=== PATIENT | female | born 1930 | race Caucasian/White ===

== ENCOUNTER 2016-02-10 16:40 | Inpatient (IN) | payer MEDICARE, OTHER ==
[~2016-02-10] VITALS: Ht 168.9 cm; Wt 56.0 kg
[~2016-02-10 16:40] MED LIST: ASPI-973 PO; ATOR40TA69 PO; FURO-128 PO; HYDR200T5 PO; LEVO88TA3 PO; METO50TA3 PO; POTA10CA42 PO
[2016-02-10 16:47] VITALS: BP 100/64; PULSE 87; RESP 20; O2SAT 100
--- NOTE | 2016-02-10 17:05 | ED.REPORT ---
HPI-Dyspnea / Wheezing Date of Service Feb 10, 2016 ED Provider: MD Beau This is an 85 year old female with a history of CHF, CAD, CABG, bilateral pleural effusions, and HTN presenting from [facility] with SOB that worsened today. Also reports non-productive cough and paresthesias in her left leg that began today causing difficult ambulation. Denies chest pain at this time. Pt seen in the ED 3 days ago for left leg pain and discharged after negative L hip x-ray, she did not complain of SOB during that visit. Nursing Notes Stated Complaint: SOB Chief Complaint: Respiratory Complaints Nursing Notes Reviewed: Yes Allergies: Coded Allergies: codeine (Verified Adverse Reaction, Intermediate, N/V, 02/10/16) nitrofurantoin (Verified Adverse Reaction, Intermediate, N/V, 02/10/16) Scheduled Aspirin (Aspirin) 81 Mg Tablet 81 MG PO BID Atorvastatin Calcium (Atorvastatin Calcium) 40 Mg Tablet 40 MG PO HS Furosemide (Lasix) 40 Mg Tablet 40 MG PO BID Hydroxychloroquine Sulfate (Hydroxychloroquine Sulfate) 200 Mg Tablet 400 MG PO DAILY Levothyroxine (Synthroid) 88 Mcg Tablet 88 MCG PO DAILY Metoprolol Tartrate (Metoprolol Tartrate) 50 Mg Tablet 6.25 MG PO BID Potassium Chloride (Potassium Chloride) 10 Meq Capsule.er 10 MEQ PO DAILY TAKE WITH FOOD General Time Seen by MD: 17:04 Chief Complaint Shortness of breath Hx Obtained From: Patient Arrived By: Walk-in Sudden in Onset?: Yes Onset Occurred: Just prior to arrival Symptom Duration: Since onset Severity: Current: Mild Pertinent Negative: Pt denies other symptoms Recent Healthcare: Recent doctor visit Similar Sx Previous: No Past Medical History Past Medical History Notes: PCP: Dr. Schultz Past Medical History Frequent UTIs Rectocele and cystocele Reports: Congestive heart failure, Coronary artery disease, Hypertension Past Surgical History Bladder suspension Reports: CABG Reports: Pacemaker insertion Smoking History Former Smoker Social History Alcohol Use: Denies alcohol use Other Social History: Good social support, Local resident Ambulatory Status Independent Review of Systems Constitutional: Denies: Chills, Fever Respiratory: Reports: Non-productive cough, Shortness of breath Cardiovascular: Denies: Chest pain Complete sys rev & neg: except as marked. GI: Denies: Nausea, Vomiting Physical Exam Initial Vital Signs Vital Signs (First) Date Time Temp Pulse Resp B/P Pulse Ox O2 Delivery O2 Flow Rate FiO2 02/10/16 16:47 36.3 87 20 100/64 100 Nasal Cannula 4 Initial VS: Reviewed Head / Eyes: Atraumatic, Normocephalic, PERRL ENT: Mucous membranes moist, Conjunctiva normal, No scleral icterus Abdomen / GI: Soft, Non-tender, No guarding, No rebound, No distention Skin: Warm, Dry, No cyanosis Neurologic: Alert, Oriented, Nonfocal Psychiatric: Mood/affect normal, Behavior normal, Normal thought content General/Constitutional: Awake, Alert Neck: Atraumatic, Supple, No meningismus, Full range of motion, No swelling, Non-tender, No masses Respiratory / Chest: No respiratory distress, No wheezing, No retractions Bilateral crackles Cardiovascular: Heart rate NL, Regular rhythm, Pulses = bilaterally Holosystolic murmur at left sternal border Lower Extremity / Pelvis / MS: Neurologic intact, Vascular intact Some warmth and diffuse erytehma of left lopez with mild swelling. Full painless range of motion of both LE. Interpretation & Diagnostics US VENOUS DUPLEX, UNILATERAL LEFT IMPRESSION: No DVT in the left lower extremity. Dictated by: Breann Justice M.D. on 02/10/2016 at 18:51 Approved by: Breann Justice M.D. on 02/10/2016 at 18:51 Lab Results Interpretation Result Diagram: 02/10/16 1715 02/10/16 1715 Test 02/10/16 17:15 02/10/16 18:57 02/10/16 19:10 White Blood Count 5.8th/mm3 (3.8-10.1) Red Blood Count 3.50mil/mm3 (3.90-5.20) Hemoglobin 8.8g/dL (12.0-15.6) Hematocrit 28.9% (35.0-46.0) Mean Corpuscular Volume 82.6fL (81-100) Mean Corpuscular Hemoglobin 25.1pg (27.0-35.0) Mean Corpuscular Hemoglobin Concent 30.4% (32.0-37.0) Red Cell Distribution Width 19.4% (12.3-15.4) Platelet Count 115bil/L (150-400) Neutrophils (%) (Auto) 61.1% (40-74) Lymphocytes (%) (Auto) 21.1% (14-46) Monocytes (%) (Auto) 15.9% (4-12) Eosinophils (%) (Auto) 0.9% (0-5) Basophils (%) (Auto) 0.5% (0-3) Prothrombin Time 14.4sec (8.1-12.5) Prothromb Time International Ratio 1.34ratio D-Dimer 0.7mg/L (<0.50) Sodium Level 137mEq/L (134-144) Potassium Level 3.9mEq/L (3.5-5.2) Chloride Level 98mEq/L (97-108) Carbon Dioxide Level 27mmol/L (18-29) Blood Urea Nitrogen 31mg/dL (8-27) Creatinine 1.14mg/dL (0.57-1.00) Estimat Glomerular Filtration Rate 65mL/min (>59) Glucose Level 80mg/dL (60-99) Calcium Level 8.8mg/dL (8.5-10.1) Total Bilirubin 0.6mg/dL (0.0-1.2) Aspartate Amino Transf (AST/SGOT) 57U/L (0-50) Alanine Aminotransferase (ALT/SGPT) 32U/L (0-32) Alkaline Phosphatase 103U/L (25-165) Troponin T 0.034ug/L (0.0-0.011) Pro-B-Type Natriuretic Peptide 7641pg/mL (0-738) Total Protein 7.1g/dL (6.4-8.4) Albumin 3.2g/dL (3.4-5.0) ECG Interpretation ECG Interpretation: Paced rhythm at a rate of 81 Time: 17:26 Interpreted by: ED physician X-Ray Chest Interpretation Chest Xray Interpretation: IMPRESSION: Stable chest. Persistent pulmonary edema and small pleural effusions. Bilateral pneumonia versus atelectasis. Dictated by: Breann Justice M.D. on 02/10/2016 at 17:33 Approved by: Breann Justice M.D. on 02/10/2016 at 17:33 Re-Eval/Medical Decision Med Decision/Clinical Course 85-year-old female history of CAD, CABG, CHF presenting complaint shortness of breath 1 day. Requiring 4 L oxygen. Chest x-ray clear. Labs remarkable for elevated BNP 7000, troponins 0.03. Influenza negative. Urine positive for leukocytes. Patient denied any chest pain. EKG no signs ischemia, paced. Recent echocardiogram performed with EF 55-60% mild right-sided CHF. Patient was given aspirin 324 mg chewable for elevated troponins and these will be trended. She was given Lasix 40 mg IV for elevated BNP. She was given one dose of Rocephin for her UTI, which she was sensitive to on recent urinary tract infection in December. Patient admitted for CHF exacerbation in December as well. To telemetry. DNR/DNI per patient. Re-Evaluation/Progress : Time of Eval: 19:13 Re-Evaluation/Progress Note: Discussed lab and imaging results and need for admission. Pt understands and agrees with plan, all questions addressed. Consultation : Referral / Consult Name: Syl Trujillo MD Consulted With: Hospitalist Call Returned at: 19:19 Basket Braider: Accepts admit Counseled Regarding: Diagnosis, Lab results, Need for follow-up, Need for admission Discharge & Departure Impression: Primary Impression: CHF exacerbation Additional Impressions: Elevated troponin UTI (urinary tract infection) Urinary tract infection type: acute cystitis Hematuria presence: without hematuria Qualified Code: N30.00 - Acute cystitis without hematuria Disposition: ADMITTED TO HOSPITAL Discharge Condition All VS Reviewed: Yes Condition: Stable Referrals: Toño Schultz MD (PCP) Scribe Attestation Portions of this note were transcribed by Antionette Muniz. I, Dr. Yanez personally performed the history, physical exam and medical decision-making; I reviewed and confirmed the accuracy of the information in the transcribed note. Signed by: Antionette Muniz. 02/10/2016, 1730. Timothy Yanez MD Feb 10, 2016 17:04 ANTIONETTE MUNIZ Feb 10, 2016 17:08
[2016-02-10 17:28] LABS: BASOPHILS % (AUTO) 0.5 % (0-3); EOSINOPHILS % (AUTO) 0.9 % (0-5); MONOCYTES % (AUTO) 15.9 % (4-12); Mean Corpuscular Hemoglobin 25.1 pg (27.0-35.0); Mean Corpuscular Volume 82.6 fL (81-100); NEUTROPHILS % (AUTO) 61.1 % (40-74); Platelet Count 115 bil/L (150-400)
--- NOTE | 2016-02-10 17:35 | DRSVH ---
PROCEDURE: X-RAY CHEST ONE VIEW, PORTABLE ([id number]) INDICATIONS: SHORTNESS OF BREATH TECHNIQUE: One view of the chest was acquired. COMPARISON: [facility], CR, XR CHEST 1VW (PORTABLE), 01/02/2016, 15:21. FINDINGS: Surgical changes and devices: There is a cardiac pacemaker with leads in expected position. Sternotom y and CABG. Lungs and pleura: Bilateral interstitial infiltrates consistent with pulmonary edema. There are smal l pleural effusions bilaterally. Bibasilar opacities may be pneumonia or atelectasis. No pneumothorax . Overall, there is no significant change. Mediastinum: Mediastinal contours appear normal. Heart size is normal. Bones and chest wall: No suspicious bony lesions. Overlying soft tissues appear unremarkable. IMPRESSION: Stable chest. Persistent pulmonary edema and small pleural effusions. Bilateral pneumonia versus atelectasis. Dictated by: Breann Justice M.D. on 02/10/2016 at 17:33 Approved by: Breann Justice M.D. on 02/10/2016 at 17:33
[2016-02-10 17:44] LABS: D-DIMER 0.7 mg/L (<0.50); INR 1.34 ratio
[2016-02-10 17:48] LABS: TROPONIN T 0.034 ug/L (0.0-0.011)
[2016-02-10] MEDS ORDERED: Furosemide 10 mg/mL 4 mL Inj IVPUSH ONE (18:45)
--- NOTE | 2016-02-10 18:53 | DRSVH ---
PROCEDURE: US VEINOUS LEG DUPLEX UNILATERAL, LEFT INDICATIONS: Left leg swelling with dyspnea TECHNIQUE: Real-time imaging, as well as color and pulse Doppler interrogation, were performed of the lower extr emity deep veins from the inguinal ligament to the popliteal fossa. COMPARISON: None. FINDINGS: The deep veins are normally compressible, and free of intraluminal thrombus. Color and pu lse Doppler demonstrate normal phasic intraluminal flow. There is normal augmentation response to di stal compression maneuver. Left leg edema is noted. IMPRESSION: No DVT in the left lower extremity. Dictated by: Breann Justice M.D. on 02/10/2016 at 18:51 Approved by: Breann Justice M.D. on 02/10/2016 at 18:51
[2016-02-10 18:58] VITALS: BP 92/52; PULSE 82; RESP 17; O2SAT 100
[2016-02-10] MEDS ORDERED: cefTRIAXone Inj 1,000 MG in IV Premix 1 EACH IV ONE (19:10)
[2016-02-10 19:25] LABS: APPEARANCE,URINE HAZY (CLEAR,HAZY); COLOR,URINE YELLOW (YELLOW)
[2016-02-10] MEDS ORDERED: Alum-Mag Hydrox-Simeth 30 mL Suspension PO PRN ×2 (19:25→20:35)
[2016-02-10] MEDS ORDERED: Ondansetron 2 mg/mL 2 mL Inj IVPUSH PRN ×2 (19:25→20:35)
[2016-02-10 19:26] LABS: OCCULT BLOOD,URINE LARGE (NEGATIVE); UROBILINOGEN,URINE NORMAL (NORMAL)
[2016-02-10 20:07] VITALS: BP 96/64; PULSE 80; RESP 24; O2SAT 100
[2016-02-10 20:26] VITALS: BP 89/59; PULSE 81; RESP 25; O2SAT 100
[2016-02-10] MEDS ORDERED: Polyethylene Glycol (PEG) 17 Gm Powder PO PRN (20:35)
[2016-02-10] MEDS ORDERED: LEVO112T4 PO (20:56)
[2016-02-10] MEDS ORDERED: ZINC57OI EXT (21:00)
[2016-02-10] MEDS ORDERED: PROM25TA14 PO (21:00)
[2016-02-10] MEDS ORDERED: ACET325C PO (21:00)
--- NOTE | 2016-02-10 21:00 | NUR ---
ADMIT TO [facility] [place] Pt admitted to floor via gurkatherine at 2100. Report received from Lorrie Mcintosh RN in ED. Pt oriented to floor, room, call light. Belongings placed in closet, waiver signed. Admit interventions completed, MED REC finished and reviewed, assessments completed. No s/sx of distress.
[2016-02-10 21:06] VITALS: BP 116/77; PULSE 86; RESP 28; O2SAT 99
--- NOTE | 2016-02-10 21:48 | PCM.HPMED ---
Subjective Date of Service Feb 10, 2016 Primary Provider: Admitting Physician: Syl Trujillo MD Primary Care Physician: Toño Schultz MD Attending Physician: Syl Trujillo MD Chief Complaint: Dyspnea History of Present Illness: Patient is a pleasant 85-year-old female with CAD s/p CABG, hypertension, rheumatoid arthritis and chronic RV systolic heart failure presenting with dyspnea. The patient is currently rehabilitating at [facility] and reports onset of shortness of breath about two days ago. She states she woke up this morning with worsening shortness of breath that occurred while at rest and did not improve, which prompted her to be brought to [facility] ED for further evaluation. The patient endorses an associated dry cough, nausea, lightheadedness and an episode of emesis yesterday. She otherwise denies chest pain, palpitations, fever, chills, wheezing, acute vision change, weakness, dizziness, abdominal pain, diarrhea. At time of visit, the patient reports her breathing has improved but she is not quite at baseline. She denies use of supplemental oxygen at home. Patient reports being compliant with her prescribed medications. In the ED, vitals: 36.3, HR 82, RR 17 satting 100% on 4L nasal cannula, BP 92/ 52. Labs are remarkable for Hgb 8.8, Hct 28.9, platelets 115, creatinine 1.14. Troponin 0.034, Pro-BNP 7641. D-dimer 0.7. Chest x-ray shows bilateral interstitial infiltrates, bilateral pleural effusions and bibasilar opacities. Patient was given a dose of Lasix 40mg IV and started on azithromycin and ceftriaxone in the ED. Review of Systems: A comprehensive review of systems was conducted with the patient and found to be negative except as above in the History of Present Illness. Allergies Coded Allergies: codeine (Verified Adverse Reaction, Intermediate, N/V, 02/10/16) nitrofurantoin (Verified Adverse Reaction, Intermediate, N/V, 02/10/16) Home Medications ASA 81mg daily Atorvastatin 40mg daily Lasix 40mg PO BID Hydroxychloroquine 400mg daily Levothyroxine 112mcg daily Metoprolol tartrate 6.25mg BID KCl PO 10mEq daily PMH History of sinus bradycardia s/p pacemaker Coronary artery disease s/p CABG Hypothyroidism Rheumatoid arthritis Recurrent UTI Rectocele History of pyelonephritis History of kidney stones Osteoporosis Chronic right heart failure (Echo 12/2015 with severely dilated right ventricle with severely reduced systolic function) Surgical History Four-vessel coronary artery bypass grafting Pacemaker placement Appendectomy Hysterectomy Cataracts Family History Mother at [id number] from myocardial infarction Father in 90s in MVA Brother at [id number] from myocardial infarction Social History Occupation: Retired. Former RN aide Hx Alcohol Use: No Hx Substance Use: No Hx Tobacco Use: Yes (quit 60 years ago) Smoking Status: Former Smoker (Quit in 1950s) Living Arrangement: Independent Nursing Home ([facility] but currently at [facility]) Intermediate Facility ([facility]) Exam Vital Signs Vital Sign - Last Date Time Temp Pulse Resp B/P Pulse Ox O2 Delivery O2 Flow Rate FiO2 02/10/16 20:26 81 25 89/59 100 Nasal Cannula 4 02/10/16 16:47 36.3 Exam General: Frail, Cachectic, No acute distress, Appropriately interactive HEENT: Normocephalic, atraumatic. External ears without defect. Pupils equal, round, and reactive to light. Anicteric sclerae, moist conjunctivae, and no lid lag. Oropharynx free of erythema and cobble stoning with moist mucosa. Endentulous. Nasal cannula in place. Neck: Supple. No jugular venous distension appreciated. No lymphadenopathy or thyromegaly. Cardiovascular: Regular rate and rhythm with no murmurs, rubs, or gallops appreciated Pulmonary: Poor effort. Decreased sounds at bases bilaterally (R>L). Rhonchi at bases. No use of accessory muscles. Abdomen: Bowel tones present. Soft, nontender, nondistended. No hepatosplenomegaly or masses appreciated. Extremities: No clubbing, cyanosis, or lymphadenopathy appreciated. Mild pitting edema in lower extremities bilaterally. Left lower extremity with area of pretibial erythema, no warmth. Skin: Normal temperature, turgor, and texture; no rash, ulcers, or subcutaneous nodules appreciated. Neurological: Cranial nerves grossly intact. Motor strength 4+/5 right lower extremity, 4-/5 left lower extremity. Sensation equal bilaterally in lower extremities. Psychiatric: Normal mood and affect. Alert and oriented to person, place, and time. Lab and Diagnostics Result Diagram: 02/10/16171402/10/161714 X-Rays, CTs and MRIs Date of Service: 02/10/16 1659 PROCEDURE: X-RAY CHEST ONE VIEW, PORTABLE ([id number]) INDICATIONS: SHORTNESS OF BREATH TECHNIQUE: One view of the chest was acquired. COMPARISON: [facility], CR, XR CHEST 1VW (PORTABLE), 01/02/2016, 15 :21. FINDINGS: Surgical changes and devices: There is a cardiac pacemaker with leads in expected position. Sternotomy and CABG. Lungs and pleura: Bilateral interstitial infiltrates consistent with pulmonary edema. There are small pleural effusions bilaterally. Bibasilar opacities may be pneumonia or atelectasis. No pneumothorax. Overall, there is no significant change. Mediastinum: Mediastinal contours appear normal. Heart size is normal. Bones and chest wall: No suspicious bony lesions. Overlying soft tissues appear unremarkable. IMPRESSION: Stable chest. Persistent pulmonary edema and small pleural effusions. Bilateral pneumonia versus atelectasis. Dictated by: Breann Justice M.D. on 02/10/2016 at 17:33 Approved by: Breann Justice M.D. on 02/10/2016 at 17:33 ------ Additional Diagnostics: Date of Service: 02/10/16 1716 PROCEDURE: US VEINOUS LEG DUPLEX UNILATERAL, LEFT INDICATIONS: Left leg swelling with dyspnea TECHNIQUE: Real-time imaging, as well as color and pulse Doppler interrogation, were performed of the lower extremity deep veins from the inguinal ligament to the popliteal fossa. COMPARISON: None. FINDINGS: The deep veins are normally compressible, and free of intraluminal thrombus. Color and pulse Doppler demonstrate normal phasic intraluminal flow. There is normal augmentation response to distal compression maneuver. Left leg edema is noted. IMPRESSION: No DVT in the left lower extremity. Dictated by: Breann Justice M.D. on 02/10/2016 at 18:51 Approved by: Breann Justice M.D. on 02/10/2016 at 18:51 Assessment & Plan Patient is a pleasant 85-year-old female with CAD s/p CABG, hypertension, rheumatoid arthritis and chronic RV systolic heart failure presenting with dyspnea and admitted for suspected CHF exacerbation, pneumonia and UTI. 1. Acute on chronic right systolic heart failure, present on admission. Active -Echo from 12/2015 shows severely dilated RV with severely reduced systolic function. LVEF 55-60% -Pro-BNP 7641 -Patient received Lasix 40mg IV in ED. Reassess in AM -Continue supplemental O2 -Daily standing weight. I/Os. -Continue metoprolol tartrate 6.25 mg BID. 2. Bibasilar pneumonia, present on admission. Active -Chest x-ray shows bibasilar opacities -Influenza screen negative -Pending studies: procalcitonin, Legionella and Strep pneumo urine Ag, Respiratory virus PCR -Patient received azithromycin and ceftriaxone in ED. Will continue ceftriaxone ; holding azithromycin due to prolonged QTc 3. Bilateral pleural effusion, chronic. Present on admission -Seen on chest x-ray November 2015. -Patient is getting diuresed. -Consider Pulmonary consultation or thoracentesis for further evaluation 4. Acute dyspnea, present on admission. Active -Etiology likely from or combination of the above #1,2,3 5. Elevated troponin, acute. Present on admission. Active -EKG sinus 81, paced, no acute ST changes -Troponin 0.034 -Possibly demand in addition to EHSAN -Will trend troponin 6. Acute kidney injury. Present on admission. Active -Creatinine 1.14 -Possibly secondary to CHF exacerbation and decreased ECV -Avoid nephrotoxins -Monitor with CMP 7. Left lower extremity swelling. Present on admission. Active -Doppler negative for DVT -Patient reports multiple cellulitis infections in the past on this leg, thus likely baseline -Continue to monitor for signs of infection 8. Acute on chronic urinary tract infections. Present on admission -History of recurrent UTI's; straight caths at home -UA with moderate LE -Patient received dose of ceftriaxone in ED -Culture pending 9. Prolonged QTc, chronic. Present on admission -QTc 569ms -Noted on EKG's dating back to November 2015 -Avoid QT prolonging medications -EKG in AM 10. Microcytic anemia, chronic. Present on admission. -Possibly secondary to hydroxychloroquine, iron deficiency -Continue to monitor with CBC 11. Thrombocytopenia, chronic. Present on admission -Possibly secondary to hydroxychloroquine -No obvious signs of bleeding -Continue to monitor with CBC 12. Coronary artery disease s/p CABG. Present on admission -ASA 81mg daily -Continue home statin 13. Hypothyroidism, chronic. Present on admission - Continue levothyroxine 112 mcg daily 14. Rheumatoid arthritis, chronic. Present on admission - Continue hydroxychloroquine 400 mg daily. Patient Status: Patient is admitted under inpatient status with expected length of stay greater than 2 midnights due to severity of presenting symptoms, risk of adverse event, and complexity of treatment plan. GI Prophylaxis: Not indicated VTE Prophylaxis: Sub-Q Heparin (Unfractionated) Resuscitation Status: DNR/DNI:Do Not Resuscitate/Intubate Attending Statement Pt seen and examined by myself and agree with above plan. Thuan Fernández DO Feb 10, 2016 21:40 Syl Trujillo MD Feb 12, 2016 06:08
[2016-02-10] MEDS: HYDROcodone-APAP 5-325 mg Tablet PO PRN (22:58)
--- NOTE | 2016-02-10 23:54 | NUR ---
Pain Pt reporting pain at 7/10 on Left leg. States it has been there since she has been at [facility], possibly muscle or nerve pain. Inquired with pt about using PRN acetaminophen but pt replys that it does not work for her. Night paged with inquiry. Zavalla 5/325 PO ordered PRN. instruction to use 0.5 tablet initially to see how pt tolerates. Dose administered. Reassessment pain at 3/10. Continuing to monitor.
[2016-02-11] VITALS (9 sets, daily range): BP systolic 89–99; BP diastolic 58–65; PULSE 77–88; RESP 20–28; O2SAT 94–100
[2016-02-11] MEDS: Heparin 5,000 Unit/mL Inj SUBQ SCH ×3 (01:23→16:36)
[2016-02-11] MEDS: HYDROcodone-APAP 5-325 mg Tablet PO PRN (04:36)
[2016-02-11 07:09] LABS: BASOPHILS % (AUTO) 0.4 % (0-3); EOSINOPHILS % (AUTO) 0 % (0-5); MONOCYTES % (AUTO) 14.9 % (4-12); Mean Corpuscular Hemoglobin 24.8 pg (27.0-35.0); NEUTROPHILS % (AUTO) 61.1 % (40-74); Platelet Count 117 bil/L (150-400)
[2016-02-11 07:36] LABS: TROPONIN T 0.033 ug/L (0.0-0.011)
[2016-02-11] MEDS: cefTRIAXone Inj 1,000 MG in IV Premix 1 EACH IV SCH (09:35)
[2016-02-11] MEDS: Hydroxychloroqine 200 mg Tablet PO SCH (09:35)
[2016-02-11 16:27] LABS: BASOPHILS % (AUTO) 0.9 % (0-3); EOSINOPHILS % (AUTO) 0 % (0-5); MONOCYTES % (AUTO) 13.2 % (4-12); Mean Corpuscular Hemoglobin 24.7 pg (27.0-35.0); Mean Corpuscular Volume 81.8 fL (81-100); NEUTROPHILS % (AUTO) 68.5 % (40-74); Platelet Count 111 bil/L (150-400)
--- NOTE | 2016-02-11 16:55 | NUR ---
Activity and SOB: patient still becomes SOB with activity. Patient stated that her SOB has improved since yesterday. Patietns lungs have crackles in the bases. She is on 2 liters of 02 and sating at 98% while she is sitting in her bed.
[2016-02-11 16:57] LABS: Unsaturated Iron Binding 456.1 ug/dL
--- NOTE | 2016-02-11 17:01 | NUR ---
spiritual care: pt request conversational visit. pt reported in detail on current medical event and life at [facility]. Reminisced about life, family and mu-ism friends. expressed interest in surroundings, gratitude and relief at medical progress.
--- NOTE | 2016-02-11 18:07 | ABG ---
DateTimeAnalyzed 18:02:00 -_ pH ____7.418 - pCO2 ___34.9__ -mmHg pO2 ___32.1__ -mmHg HCO3- ___22.1__ -mmol/L ABE ___-1.5__ -mmol/L tHb ____9.1__ -g/dL O2Hb ___56.0__ -% COHb ____2.9__ -% MetHb ____0.9__ -% sO2 ___58.2__ -% FIO2 ___80.0__ -% Drawn By as - Date/Time Notified____ 18:06:00 -_ Liter_Flow ___12.0__ -L/min Oxygen Device 1 __oxymask - Notified By ams - Notified Whom dr al - B 765 -mmHg tO2 ____7.2__ -Vol% Mo test N/A -
--- NOTE | 2016-02-11 18:19 | PCM.PNMED ---
Subjective Date of Service Feb 11, 2016 Subjective Pt reports that she is feeling better than last night. Pt states that her shortness of breath has almost completely resolved. Pt reports that she uses supplemental oxygen at home. Pt states that her breath is at baseline this morning. Pt reports that she feels quite tired, but she attributes this to her prior hospitalizations. Pt reports headache last night, which resolved. Exam Vital Signs Vital Sign - Last Date Time Temp Pulse Resp B/P Pulse Ox O2 Delivery O2 Flow Rate FiO2 02/11/16 05:01 81 02/11/16 04:21 35.8 28 99/65 98 Nasal Cannula 2.00 Intake and Output 02/10/16 02/10/16 02/11/16 Cumulative From/Thru 15:00 23:00 07:00 02/10/16 16:47 - 02/10/16 21:06 Output Total 100 ml 100 ml Balance -100 ml -100 ml Output Urine Total 100 ml 100 ml Exam General: Frail, Cachectic, No acute distress, Appropriately interactive HEENT: Nasal canula in place. Normocephalic, atraumatic. Left eye drooping( per pt & family this is chronic). Anicteric sclerae, moist conjunctivae.Oropharynx with mildly dry mucosa. Edentulous. Neck: Supple. No jugular venous distension appreciated. No lymphadenopathy Cardiovascular: Regular rate and rhythm with no murmurs, rubs, or gallops appreciated Pulmonary: Poor effort. Decreased sounds at bases bilaterally (R>L). No use of accessory muscles. Abdomen: Bowel tones present. Soft, nontender, nondistended. Extremities: No clubbing, cyanosis, or lymphadenopathy appreciated. Trace pitting edema in lower extremities bilaterally. Left lower extremity with area of pretibial erythema, no warmth ( chronic per patient). Skin: Normal temperature, turgor, and texture; no rash, ulcers, or subcutaneous nodules appreciated. Psychiatric: Normal mood and affect. Alert and oriented to person, place, and time. IVs and Medications Medications Reviewed: Medications were reviewed in detail Lab and Diagnostics Result Diagram: 02/11/1660202/11/16602 X-Rays, CTs and MRIs Date of Service: 02/10/16 4796 PROCEDURE: X-RAY CHEST ONE VIEW, PORTABLE ([id number]) INDICATIONS: SHORTNESS OF BREATH TECHNIQUE: One view of the chest was acquired. COMPARISON: [facility], CR, XR CHEST 1VW (PORTABLE), 01/02/2016, 15 :21. FINDINGS: Surgical changes and devices: There is a cardiac pacemaker with leads in expected position. Sternotomy and CABG. Lungs and pleura: Bilateral interstitial infiltrates consistent with pulmonary edema. There are small pleural effusions bilaterally. Bibasilar opacities may be pneumonia or atelectasis. No pneumothorax. Overall, there is no significant change. Mediastinum: Mediastinal contours appear normal. Heart size is normal. Bones and chest wall: No suspicious bony lesions. Overlying soft tissues appear unremarkable. IMPRESSION: Stable chest. Persistent pulmonary edema and small pleural effusions. Bilateral pneumonia versus atelectasis. Dictated by: Breann Justice M.D. on 02/10/2016 at 17:33 Approved by: Breann Justice M.D. on 02/10/2016 at 17:33 ------ Additional Diagnostics Date of Service: 02/10/16 1032 PROCEDURE: US VEINOUS LEG DUPLEX UNILATERAL, LEFT INDICATIONS: Left leg swelling with dyspnea TECHNIQUE: Real-time imaging, as well as color and pulse Doppler interrogation, were performed of the lower extremity deep veins from the inguinal ligament to the popliteal fossa. COMPARISON: None. FINDINGS: The deep veins are normally compressible, and free of intraluminal thrombus. Color and pulse Doppler demonstrate normal phasic intraluminal flow. There is normal augmentation response to distal compression maneuver. Left leg edema is noted. IMPRESSION: No DVT in the left lower extremity. Dictated by: Breann Justice M.D. on 02/10/2016 at 18:51 Approved by: Breann Justice M.D. on 02/10/2016 at 18:51 Assessment & Plan Patient is a pleasant 85-year-old female with CAD s/p CABG, hypertension, rheumatoid arthritis and chronic RV systolic heart failure presenting with dyspnea and admitted for suspected CHF exacerbation, pneumonia and UTI. Acute on chronic right systolic heart failure, present on admission. ongoing -Echo from 12/2015 shows severely dilated RV with severely reduced systolic function. LVEF 55-60% -Pro-BNP 7641 -Lasix 40mg IV in ED -Continue supplemental O2 -Daily standing weight. I/Os. -Continue metoprolol tartrate 6.25 mg BID. -Restart home dose of lasix -Labs in AM Suspected bibasilar community acquired pneumonia, present on admission,ongoing -Chest x-ray shows bibasilar opacities -Influenza screen negative -Procalcitonin negative 0.14, -Pending studies: Legionella and Strep pneumo urine Ag, Respiratory virus PCR -Received azithromycin and ceftriaxone in ED. -Continue treatment with Azithromycin and Ceftriaxone at this time given pt's improvement. However, if pt starts to worsen or develop more symptoms would consider HCAP as possible cause and add antibiotics. Bilateral pleural effusion, chronic. Present on admission -Seen on chest x-ray November 2015. -Patient is getting diuresed. -Consider thoracentesis if worsening on imaging, or pt reports worsening dyspnea Acute dyspnea, present on admission. Active -Etiology likely from or combination of the above #1,2,3 -Improving -Pt on home supplemental O2 at baseline Elevated troponin, acute. Present on admission. Active -Pt denies any chest pain/pressure, shortness of breath or diaphoresis -EKG sinus 81, paced, no acute ST changes -Troponin elevated-- 0.034, 0.027, 0.033 -Possibly secondary to demand ischemia Acute kidney injury. Present on admission. Active -Creatinine 1.14 on admission, trending up -Possibly secondary to CHF exacerbation, unclear etiology at this time. -Avoid nephrotoxins -Monitor labs daily Chronic left lower extremity swelling. Present on admission -Doppler negative for DVT -Patient reports multiple cellulitis infections in the past on this leg, thus likely baseline -Continue to monitor for signs of infection Acute on chronic urinary tract infections. Present on admission -History of recurrent UTI's; straight caths at home -UA with moderate LE, many bacteria -Started on ceftriaxone in ED -Urine culture pending, will adjust abx depending on results Prolonged QTc, chronic. Present on admission -QTc 569ms on admission, -Noted on EKG's dating back to November 2015 -Avoid QT prolonging medications -Repeat EKG pending Chronic issues, presumed stable Microcytic anemia, chronic. Present on admission. -Possibly secondary to hydroxychloroquine, iron deficiency -Continue to monitor with CBC Thrombocytopenia, chronic. Present on admission -Possibly secondary to hydroxychloroquine -No obvious signs of bleeding -Continue to monitor with CBC Coronary artery disease s/p CABG. Present on admission -ASA 81mg daily -Continue home statin Hypothyroidism, chronic. Present on admission - Continue levothyroxine 112 mcg daily Rheumatoid arthritis, chronic. Present on admission - Continue hydroxychloroquine 400 mg daily. Dispo: 1-2 days, back to [facility] Code: DNR/DNI GI Prophylaxis: Not indicated VTE Prophylaxis: Sub-Q Heparin (Unfractionated) Resuscitation Status: DNR/DNI:Do Not Resuscitate/Intubate Attending Statement I reviewed this patients chart, discussed the plan of care with the resident and examined the patient. I agree with the above physical exam and assessment and plan. Unique Hernandez DO Feb 11, 2016 10:15 Devon Hunt DO Feb 12, 2016 14:35
--- NOTE | 2016-02-11 18:38 | NUR ---
Rapid repose/Respiratory distress: Patient was assisted to the [facility] to have BM and urinate. She started C/O SOB with her 02 sat dipping into the 70s and sustaining there with occasional increase to the low 80s after she was placed on Oxymax and 10 liters of 02. Rapid response was called . Patients MD arrived 02 was increased to 15L and ABGs were drawn and per MD Chest xray was obtained. Patient was given 25 mg of Benadryl IV mixed in 10 ml of NS over 4 minutes before this incident. (the med was ordered due to patients c/o red and itchy tongue and patient ate dinner before the incident.) The incident lasted approximately 15-20 minutes. RT, Charge nurse and 3 other nurses and Md came to assist with the situation. Patients son was here during the incident as well as the Brenda who came to talk with the son. Addendum: 02/11/16 at 1858 by GUALBERTO LOUIS RN Patients vital signs recovered with b/p 99/64 Resp 21 o2 sat 98% on 4 liters and pulse 84.
--- NOTE | 2016-02-11 19:03 | NUR ---
Responded to rapid response. Pt. on 15 lpm oxymask, VBG done. Results in chart.
--- NOTE | 2016-02-11 21:04 | DRSVH ---
PROCEDURE: X-RAY CHEST ONE VIEW ([id number]) INDICATIONS: Rapid Response TECHNIQUE: One view of the chest was acquired. COMPARISON: [facility], CR, XR CHEST 1VW (PORTABLE), 02/10/2016, 17:06. FINDINGS: Surgical changes and devices: Status post CABG procedure. Dual-lead cardiac pacer is stable. Lungs and pleura: Small bilateral pleural fluid collection slightly increased in size compared to pr ior examination obtained 02/10/16. Increased bibasilar opacities. Mediastinum: Mediastinal contours appear normal. Heart size is normal. Bones and chest wall: No suspicious bony lesions. Overlying soft tissues appear unremarkable. IMPRESSION: Increased bibasilar opacities and small bilateral pleural fluid collections compatible w ith progression of pneumonia. Dictated by: Maria Rainey MD, PhD on 02/11/2016 at 21:02 Approved by: Maria Rainey MD, PhD on 02/11/2016 at 21:02
[2016-02-12] VITALS (8 sets, daily range): BP systolic 96–107; BP diastolic 58–67; PULSE 77–96; RESP 20–21; O2SAT 94–99
[2016-02-12] MEDS: Heparin 5,000 Unit/mL Inj SUBQ SCH ×3 (00:30→18:30)
[2016-02-12] MEDS: cefTRIAXone Inj 1,000 MG in IV Premix 1 EACH IV SCH (08:02)
[2016-02-12] MEDS: Hydroxychloroqine 200 mg Tablet PO SCH (08:05)
[2016-02-12] MEDS ORDERED: Nystatin 100,000 Unit/mL 5 mL Suspension PO ONE (09:20)
--- NOTE | 2016-02-12 11:57 | NUR ---
Social Work-initial assessment: Data:See initial assessment. Pt is a 85 y/o female who was admitted on 02/10/16 for CHF exacerbation per H&P. Pt's insurance is [facility] and [facility] and PCP is Toño Schultz MD. EMR reviewed. Pt's readmission score is 3-high risk. SW met with pt at bedside to discuss discharge planning, SW role explained. Pt is alert and oriented x3. Pt has been residing at [facility] for the last few weeks. Pt uses a fww at baseline and does not drive. ANDRE updated by that pt and family are interested in Hospice services. ANDRE spoke with Ricarda at [facility] who states that they would be able to complete info visit this afternoon between [id number]. SW updated pt and also called son Oscar with update. Oscar states he will update family and they will be in this afternoon to attend meeting. SW called Ricarda back at [facility] to confirm plan. SW to follow up with pt and family after information visit. SW will continue to follow. Assessment:Pt who has been residing at [facility]. Plan:Hospice to come in this afternoon between [id number] to complete information visit with pt and family. SW will continue to follow. KISHOR Hernandez Addendum: 02/12/16 at 1204 by ROSEMARY NIELSEN Amended: Links added.
--- NOTE | 2016-02-12 13:45 | NUR ---
Evaluation completed. Please go to "Notes" then click on "Assessments and Notes" (bottom left corner of screen). Then select appropriate discipline tab on top of screen.
--- NOTE | 2016-02-12 15:55 | PCM.PNMED ---
Subjective Date of Service Feb 12, 2016 Subjective Pt reports that she is feeling very tired currently. She reports that she just wants to fall asleep and join her ( a few months ago per family). Pt expresses frustration at how much time she has been spending in the hospital and being away from home. Pt also reports that she continues to feel short of breath. Pt reports that her tongue and her throat are sore. She notes that every time she swallows she has pain. Pt also reports that she feels she has been choking slightly on foods. She denies any issues with swallowing liquids. Pt denies any fevers, chills, nausea, vomiting or diarrhea. Patient expresses her desire to be home and rest. Hospice was discussed with the family, who were unaware of the resources available. Pt and family are interested in speaking with someone from hospice to gather more information. Exam Vital Signs Vital Sign - Last Date Time Temp Pulse Resp B/P Pulse Ox O2 Delivery O2 Flow Rate FiO2 02/12/16 13:05 36.6 85 20 103/67 99 Nasal Cannula 1.00 Intake and Output 02/11/16 02/11/16 02/12/16 Cumulative From/Thru 15:00 23:00 07:00 02/10/16 16:47 - 02/12/16 04:55 Intake Total 200 ml 600 ml 400 ml 1200 ml Output Total 275 ml 400 ml 200 ml 975 ml Balance -75 ml 200 ml 200 ml 225 ml Intake Oral 200 ml 600 ml 400 ml 1200 ml Output Urine Total 275 ml 400 ml 200 ml 975 ml # Bowel Movements 2 1 3 Exam General: Frail, Cachectic, No acute distress, Appropriately interactive HEENT: Tongue and oropharynx with erythema. Nasal canula in place. Normocephalic , atraumatic. Left eye drooping( per pt & family this is chronic). Anicteric sclerae, moist conjunctivae.Oropharynx with mildly dry mucosa. Edentulous. Neck: Supple. No jugular venous distension appreciated. No lymphadenopathy Cardiovascular: Regular rate and rhythm with no murmurs, rubs, or gallops appreciated Pulmonary: Poor effort. Decreased sounds at bases bilaterally. No use of accessory muscles. Abdomen: Bowel tones present. Soft, nontender, nondistended. Extremities: No clubbing, cyanosis, or lymphadenopathy appreciated. Trace pitting edema in lower extremities bilaterally. Left lower extremity with area of pretibial erythema, no warmth ( chronic per patient). Skin: Normal temperature, turgor, and texture; no rash, ulcers, or subcutaneous nodules appreciated. Psychiatric: Normal mood and affect. Alert and oriented to person, place, and time. IVs and Medications Medications Reviewed: Medications were reviewed in detail Lab and Diagnostics Result Diagram: 02/11/16 1620 02/11/16 0603 X-Rays, CTs and MRIs Date of Service: 02/10/16 1659 PROCEDURE: X-RAY CHEST ONE VIEW, PORTABLE ([id number]) INDICATIONS: SHORTNESS OF BREATH TECHNIQUE: One view of the chest was acquired. COMPARISON: [facility], CR, XR CHEST 1VW (PORTABLE), 01/02/2016, 15 :21. FINDINGS: Surgical changes and devices: There is a cardiac pacemaker with leads in expected position. Sternotomy and CABG. Lungs and pleura: Bilateral interstitial infiltrates consistent with pulmonary edema. There are small pleural effusions bilaterally. Bibasilar opacities may be pneumonia or atelectasis. No pneumothorax. Overall, there is no significant change. Mediastinum: Mediastinal contours appear normal. Heart size is normal. Bones and chest wall: No suspicious bony lesions. Overlying soft tissues appear unremarkable. IMPRESSION: Stable chest. Persistent pulmonary edema and small pleural effusions. Bilateral pneumonia versus atelectasis. Dictated by: Breann Justice M.D. on 02/10/2016 at 17:33 Approved by: Breann Justice M.D. on 02/10/2016 at 17:33 ------ Additional Diagnostics Date of Service: 02/10/16 1716 PROCEDURE: US VEINOUS LEG DUPLEX UNILATERAL, LEFT INDICATIONS: Left leg swelling with dyspnea TECHNIQUE: Real-time imaging, as well as color and pulse Doppler interrogation, were performed of the lower extremity deep veins from the inguinal ligament to the popliteal fossa. COMPARISON: None. FINDINGS: The deep veins are normally compressible, and free of intraluminal thrombus. Color and pulse Doppler demonstrate normal phasic intraluminal flow. There is normal augmentation response to distal compression maneuver. Left leg edema is noted. IMPRESSION: No DVT in the left lower extremity. Dictated by: Breann Justice M.D. on 02/10/2016 at 18:51 Approved by: Breann Justice M.D. on 02/10/2016 at 18:51 Assessment & Plan Patient is a pleasant 85-year-old female with CAD s/p CABG, hypertension, rheumatoid arthritis and chronic RV systolic heart failure presenting with dyspnea and admitted for suspected CHF exacerbation, pneumonia and UTI. Acute on chronic right systolic heart failure, present on admission. ongoing -Echo from 12/2015 shows severely dilated RV with severely reduced systolic function. LVEF 55-60% -Pro-BNP 7641 -Lasix 40mg IV in ED -Continue supplemental O2 -Daily standing weight. I/Os. -Continue metoprolol tartrate 6.25 mg BID. -Holding lasix as pt has dry mucosa. -Gentle rehydration with close monitoring -Labs in AM - Pt to be seen by Hospice today, depending on decisions we will adjust treatment plan Suspected bibasilar community acquired pneumonia, present on admission,ongoing -Chest x-ray shows bibasilar opacities -Influenza screen negative -Procalcitonin negative 0.14, -Pending studies: Legionella and Strep pneumo urine Ag, Respiratory virus PCR -Received azithromycin and ceftriaxone in ED. -Continue treatment with Azithromycin and Ceftriaxone at this time given pt's improvement. However, if pt starts to worsen or develop more symptoms would consider HCAP as possible cause and add antibiotics. - Pt to be seen by Hospice today, depending on decisions we will adjust treatment plan Erythema of oropharynx with reported dysphagia, ongoing -Possible cause include thrush -Nystatin swish and swallow ordered -Swallow evaluation ordered -Will consider Diflucan if not improved. Bilateral pleural effusion, chronic. Present on admission -Seen on chest x-ray November 2015. -No worsening, appears stable -Consider thoracentesis if worsening on imaging, or pt reports worsening dyspnea Acute dyspnea, present on admission. Active -Etiology likely from or combination of the above #1,2,3 -Improving -Pt on home supplemental O2 at baseline Elevated troponin, acute. Present on admission. Active -Pt denies any chest pain/pressure, shortness of breath or diaphoresis -EKG sinus 81, paced, no acute ST changes -Troponin elevated-- 0.034, 0.027, 0.033 -Possibly secondary to demand ischemia Acute kidney injury. Present on admission. Active -Creatinine 1.14 on admission, trending up -Possibly secondary to CHF exacerbation, unclear etiology at this time. -Avoid nephrotoxins -Gentle rehydration with close monitoring -Monitor labs daily Chronic left lower extremity swelling. Present on admission -Doppler negative for DVT -Patient reports multiple cellulitis infections in the past on this leg, thus likely baseline -Continue to monitor for signs of infection Acute on chronic urinary tract infections. Present on admission -History of recurrent UTI's; straight caths at home -UA with moderate LE, many bacteria -Started on ceftriaxone in ED -Urine culture growing mixed urogenital roshni. No abx changes. Prolonged QTc, chronic. Present on admission -QTc 569ms on admission, -Noted on EKG's dating back to November 2015 -Avoid QT prolonging medications -Repeat EKG pending Chronic issues, presumed stable Microcytic anemia, chronic. Present on admission. -Possibly secondary to hydroxychloroquine, iron deficiency -Continue to monitor with CBC Thrombocytopenia, chronic. Present on admission -Possibly secondary to hydroxychloroquine -No obvious signs of bleeding -Continue to monitor with CBC Coronary artery disease s/p CABG. Present on admission -ASA 81mg daily -Continue home statin Hypothyroidism, chronic. Present on admission - Continue levothyroxine 112 mcg daily Rheumatoid arthritis, chronic. Present on admission - Continue hydroxychloroquine 400 mg daily. Dispo: 1-2 days. Meeting with Hospice today. Code: DNR/DNI GI Prophylaxis: Not indicated VTE Prophylaxis: Sub-Q Heparin (Unfractionated) Resuscitation Status: DNR/DNI:Do Not Resuscitate/Intubate Attending Statement I reviewed this patients chart, discussed the plan of care with the resident and examined the patient. I agree with the above physical exam and assessment and plan. Unique Hernandez DO Feb 12, 2016 15:55 Devon Hunt DO Feb 13, 2016 16:41
[2016-02-12 16:04] LABS: BASOPHILS % (AUTO) 0.6 % (0-3); EOSINOPHILS % (AUTO) 1.3 % (0-5); MONOCYTES % (AUTO) 16.9 % (4-12); Mean Corpuscular Volume 81.9 fL (81-100); NEUTROPHILS % (AUTO) 61.2 % (40-74); Platelet Count 120 bil/L (150-400)
[2016-02-12] MEDS: 0.9% Sodium Chloride 1,000 ML IV SCH (18:30)
[2016-02-12] MEDS: Nystatin 100,000 Unit/mL 5 mL Suspension PO SCH (21:41)
[2016-02-13] VITALS (9 sets, daily range): BP systolic 92–111; BP diastolic 58–73; PULSE 74–89; RESP 18–20; O2SAT 92–98
[2016-02-13] MEDS: Heparin 5,000 Unit/mL Inj SUBQ SCH ×3 (00:18→17:44)
--- NOTE | 2016-02-13 05:43 | NUR ---
Activity/IV access IV therapist is unable to put an IV line on the pt, per recommendation she states that the pt could have a picc line instead in am. was notified and no new orders given. Pt denies chest pain, still having sob on rest and activity. Currently on 2lpm NC. Pt denies episodes of n/v and abd discomfort. Pt also complains of unable to fall asleep @around 0400, MD was notified and no new orders given. Hourly rounding was done, call light within reach. Will continue to monitor.
[2016-02-13 06:55] LABS: BASOPHILS % (AUTO) 0.5 % (0-3); EOSINOPHILS % (AUTO) 0 % (0-5); MONOCYTES % (AUTO) 17.5 % (4-12); Mean Corpuscular Hemoglobin 25.3 pg (27.0-35.0); Mean Corpuscular Volume 81.7 fL (81-100); NEUTROPHILS % (AUTO) 58.8 % (40-74); Platelet Count 133 bil/L (150-400)
[2016-02-13] MEDS: cefTRIAXone Inj 1,000 MG in IV Premix 1 EACH IV SCH (08:30)
[2016-02-13] MEDS: 0.9% Sodium Chloride 1,000 ML IV SCH (08:30)
[2016-02-13] MEDS ORDERED: Azithromycin Inj 500 MG in Dextrose 5% w/Vial Mate 250 ML IV SCH (08:30)
[2016-02-13] MEDS: Nystatin 100,000 Unit/mL 5 mL Suspension PO SCH ×4 (08:47→20:57)
[2016-02-13] MEDS: Hydroxychloroqine 200 mg Tablet PO SCH (08:47)
--- NOTE | 2016-02-13 11:22 | NUR ---
ODIN signed. KISHOR Hernandez
[2016-02-13] MEDS ORDERED: cefTRIAXone Inj 1,000 MG, Lidocaine PF 1% Inj 2.1 ML in Syringe 0 EACH IM ONE (12:00)
--- NOTE | 2016-02-13 13:26 | NUR ---
Social Work-readiness for discharge: Data:EMR reviewed. Pt is on day 3 of hospitalization for CHF exacerbation per H&P. ANDRE spoke with Ricarda at Hospice this morning who confirms pt and family did sign consents with Hospice. Ricarda states they are not able to open services with pt until Tuesday 02/14 between 2-3 in the afternoon. Ricarda confirms the earliest they would be able to deliver DME would be Sunday due the holiday. updated and agreeable to plan. ANDRE met with pt, son Tim and Oscar at bedside to discuss. SW explained that Hospice will not be able to open with pt until Sunday afternoon and DME will be delivered in the morning. Son's confirm that family will be providing care at home. Son Oscar has questions about FIDE,etc. SW answered questions and provided son with [facility] application and also [employer] guidebook. SW will continue to follow. Assessment:Pt who will return home on Hospice. Plan:Pt to discharge Tuesday 02/14 in the morning for Hospice to open in the afternoon between 2-3. DME to be delivered Sunday. Pt and sons updated and agreeable. SW will continue to follow. KISHOR Hernandez
--- NOTE | 2016-02-13 15:15 | NUR ---
IV and antibiotics IV therapy unable to start using doppler, PICC line not within the goals of care. Oral and IM abx admin this shift. Plan is to d/c home on Hospice in 1-2 days. Multiple family at bedside this shift. Making needs known using call light and reports comfort this shift.
--- NOTE | 2016-02-13 15:57 | PCM.PNMED ---
Subjective Date of Service Feb 13, 2016 Subjective Overnight: IV site lost; IV therapy unable to place new Today: Family and patient do not wish to pursue PICC placement at this time. Antibiotics were provided via IM injection. Tolerating po well, encouraged to maintain fluid intake. Family and patient expressed concern about DC, and would not like to be DC'd prior to Hospice opening up. Exam Vital Signs Vital Sign - Last Date Time Temp Pulse Resp B/P Pulse Ox O2 Delivery O2 Flow Rate FiO2 02/13/16 13:17 36.5 74 18 105/63 95 Nasal Cannula 1.00 Intake and Output 02/12/16 02/12/16 02/13/16 Cumulative From/Thru 15:00 23:00 07:00 02/10/16 16:47 - 02/13/16 05:17 Intake Total 850 ml 200 ml 2250 ml Output Total 925 ml 350 ml 2250 ml Balance -75 ml -150 ml 0 ml Intake Oral 850 ml 200 ml 2250 ml Output Urine Total 925 ml 350 ml 2250 ml # Bowel Movements 0 1 4 Exam General: Frail, Cachectic, No acute distress, Appropriately interactive HEENT: Tongue and oropharynx with erythema. Nasal canula in place. Normocephalic , atraumatic. Left eye drooping( per pt & family this is chronic). Anicteric sclerae, moist conjunctivae.Oropharynx with mildly dry mucosa. Edentulous. Neck: Supple. No jugular venous distension appreciated. No lymphadenopathy Cardiovascular: Regular rate and rhythm with no murmurs, rubs, or gallops appreciated Pulmonary: Poor effort. Decreased sounds at bases bilaterally. No use of accessory muscles. Abdomen: Bowel tones present. Soft, nontender, nondistended. Extremities: Trace pitting edema in lower extremities bilaterally. Left lower extremity with area of pretibial erythema, no warmth (chronic per patient). Skin: Normal temperature, turgor, and texture Psychiatric: Normal mood and affect. Alert and oriented to person, place, and time. Neuro: CNII-XII grossly intact; speech normal; facial expressions symmetric IVs and Medications Medications Reviewed: Medications were reviewed in detail Lab and Diagnostics Result Diagram: 02/13/16 0635 02/13/16 0635 X-Rays, CTs and MRIs Date of Service: 02/10/16 6488 PROCEDURE: X-RAY CHEST ONE VIEW, PORTABLE ([id number]) INDICATIONS: SHORTNESS OF BREATH TECHNIQUE: One view of the chest was acquired. COMPARISON: [facility], CR, XR CHEST 1VW (PORTABLE), 01/02/2016, 15 :21. FINDINGS: Surgical changes and devices: There is a cardiac pacemaker with leads in expected position. Sternotomy and CABG. Lungs and pleura: Bilateral interstitial infiltrates consistent with pulmonary edema. There are small pleural effusions bilaterally. Bibasilar opacities may be pneumonia or atelectasis. No pneumothorax. Overall, there is no significant change. Mediastinum: Mediastinal contours appear normal. Heart size is normal. Bones and chest wall: No suspicious bony lesions. Overlying soft tissues appear unremarkable. IMPRESSION: Stable chest. Persistent pulmonary edema and small pleural effusions. Bilateral pneumonia versus atelectasis. Dictated by: Breann Justice M.D. on 02/10/2016 at 17:33 Approved by: Breann Justice M.D. on 02/10/2016 at 17:33 ------ Additional Diagnostics Date of Service: 02/10/16 7976 PROCEDURE: US VEINOUS LEG DUPLEX UNILATERAL, LEFT INDICATIONS: Left leg swelling with dyspnea TECHNIQUE: Real-time imaging, as well as color and pulse Doppler interrogation, were performed of the lower extremity deep veins from the inguinal ligament to the popliteal fossa. COMPARISON: None. FINDINGS: The deep veins are normally compressible, and free of intraluminal thrombus. Color and pulse Doppler demonstrate normal phasic intraluminal flow. There is normal augmentation response to distal compression maneuver. Left leg edema is noted. IMPRESSION: No DVT in the left lower extremity. Dictated by: Breann Justice M.D. on 02/10/2016 at 18:51 Approved by: Breann Justice M.D. on 02/10/2016 at 18:51 Assessment & Plan Patient is a pleasant 85-year-old female with CAD s/p CABG, hypertension, rheumatoid arthritis and chronic RV systolic heart failure presenting with dyspnea and admitted for suspected CHF exacerbation, pneumonia and UTI. She has been agreeable to open with Hospice, tentative 02/15/2016. She, and her family, wishes to remain in the hospital until all equipment and services are initiated. Acute on chronic right systolic heart failure, present on admission. ongoing -Echo from 12/2015 shows severely dilated RV with severely reduced systolic function. LVEF 55-60% -Pro-BNP 7641 -Lasix 40mg IV in ED -Continue supplemental O2 -Daily standing weight. I/Os. -Continue metoprolol tartrate 6.25 mg BID. -Holding lasix as pt has dry mucosa. -Gentle rehydration with close monitoring -Labs in AM - Pt accepted by Hospice, but wishes to have continued treatments while in the hospital Suspected bibasilar community acquired pneumonia, present on admission. Improved -Chest x-ray shows bibasilar opacities -Influenza screen negative -Procalcitonin negative 0.14, -Pending studies: Legionella and Strep pneumo urine Ag, Respiratory virus PCR -Received azithromycin and ceftriaxone in ED. -Continue treatment with Azithromycin and Ceftriaxone at this time given pt's improvement. However, if pt starts to worsen or develop more symptoms would consider HCAP as possible cause and add antibiotics. - Final dose rocephin admin IM, two days remain azithro therapy - Pt accepted by Hospice, but wishes to have continued treatments while in the hospital Erythema of oropharynx with reported dysphagia, Improved -Possible cause include thrush -Nystatin swish and swallow ordered -Swallow evaluation ordered: Soft, nectar-thick -Will consider Diflucan if not improved. Bilateral pleural effusion, chronic. Present on admission. Presumed stable -Seen on chest x-ray November 2015. -No worsening, appears stable Acute dyspnea, present on admission. Resolved -Etiology likely from or combination of the above #1,2,3 -Improving -Pt on home supplemental O2 at baseline Elevated troponin, acute. Present on admission. Stable -Pt denies any chest pain/pressure, shortness of breath or diaphoresis -EKG sinus 81, paced, no acute ST changes -Troponin elevated-- 0.034, 0.027, 0.033 -Possibly secondary to demand ischemia Acute kidney injury. Present on admission. Stabilizing -Creatinine 1.14 on admission, trending up -Possibly secondary to CHF exacerbation, unclear etiology at this time. -Avoid nephrotoxins -Gentle rehydration with close monitoring -Monitor labs daily Chronic left lower extremity swelling. Present on admission. Stable -Doppler negative for DVT -Patient reports multiple cellulitis infections in the past on this leg, thus likely baseline -Continue to monitor for signs of infection Acute on chronic urinary tract infections. Present on admission. Resolved -History of recurrent UTI's; straight caths at home -UA with moderate LE, many bacteria -Started on ceftriaxone in ED -Urine culture growing mixed urogenital roshni - Rocephin completed; azithro x2 more days Prolonged QTc, chronic. Present on admission. Stable -QTc 569ms on admission, -Noted on EKG's dating back to November 2015 -Avoid QT prolonging medications -Repeat EKG pending Chronic issues, presumed stable Microcytic anemia, chronic. Present on admission. -Possibly secondary to hydroxychloroquine, iron deficiency -Continue to monitor with CBC Thrombocytopenia, chronic. Present on admission -Possibly secondary to hydroxychloroquine -No obvious signs of bleeding -Continue to monitor with CBC Coronary artery disease s/p CABG. Present on admission -ASA 81mg daily -Continue home statin Hypothyroidism, chronic. Present on admission - Continue levothyroxine 112 mcg daily Rheumatoid arthritis, chronic. Present on admission - Continue hydroxychloroquine 400 mg daily. - PRN: Fever/pain/antiemetic/bowel - DIET: Per ST, soft, nectar thick - GI: Not indicated - DVT: Hep q8 - Code: DNR/DNI Dispo: Hospice tentative to open 02/15/16. Patient and family wish to remain inpatient until that time. Would like to continue to receive treatments as necessary, they would not like comfort care at this time. Refused PICC placement at this time. Aware that they are free to discharge at any point if they desire. DC 02/14 to home with Hospice services at this time. Pain Evaluation: Adequate Pain Control GI Prophylaxis: Not indicated VTE Prophylaxis: Sub-Q Heparin (Unfractionated) Resuscitation Status: DNR/DNI:Do Not Resuscitate/Intubate Attending Statement I reviewed this patients chart, discussed the plan of care with the resident and examined the patient. I agree with the above physical exam and assessment and plan. Kathleen Baugh DO Feb 13, 2016 15:57 Devon Hunt DO Feb 13, 2016 16:42
[2016-02-14] VITALS (8 sets, daily range): BP systolic 98–108; BP diastolic 59–72; PULSE 81–89; RESP 18–26; O2SAT 96–99
[2016-02-14] MEDS: Heparin 5,000 Unit/mL Inj SUBQ SCH ×3 (00:23→17:00)
[2016-02-14] MEDS: 0.9% Sodium Chloride 1,000 ML IV SCH ×2 (01:10→16:54)
--- NOTE | 2016-02-14 06:21 | NUR ---
Sleep/SOB Pt has been complaining of not being able to fall asleep for most of the night. Denies episodes of chest pain, but still having some SOB upon exertion. Administered melatonin as ordered, pt slept around 3am to present.
[2016-02-14] MEDS: Nystatin 100,000 Unit/mL 5 mL Suspension PO SCH ×4 (08:00→21:37)
[2016-02-14] MEDS: Hydroxychloroqine 200 mg Tablet PO SCH (08:00)
--- NOTE | 2016-02-14 12:53 | NUR ---
Social Work-readiness for discharge: Data:EMR reviewed. Pt is on day 4 of hospitalization for CHF exacerbation per H&P. Pt will be ready to discharge home tomorrow with Hospice Services. ANDRE confirmed with Ricarda at Hospice that they will open at home tomorrow between 2-3pm. Ricarda has ordered DME and this will be delivered in the morning tomorrow. Ricarda to also order canisters of O2 for transport. SW spoke with RN who confirms pt could go via POV. SW met with pt and two sons at bedside to discuss discharge planning, SW role explained. Pt and sons still in agreement for Hospice services tomorrow. Son states one of the family member will provide transport home tomorrow. SW explained discharge will likely be around 1200. SW explained that whoever is providing transport tomorrow will need to bring in tank of O2 that Hospice delivers tomorrow for transport. Sons agreeable. SW will continue to follow. Assessment:Pt to go home on Hospice. Plan:Pt to discharge home tomorrow via POV at 1200. Hospice to deliver DME in the morning to home, family to bring in O2 from home for transport. Hospice to open at home between 2-3. SW will continue to follow. KISHOR Hernandez
--- NOTE | 2016-02-14 13:07 | PCM.PNMED ---
Subjective Date of Service Feb 14, 2016 Subjective Patient reports that she is doing well overall. She notes that she became short of breath when she took off her nasal canula to eat breakfast, but notes the dyspnea resolved once she put the oxygen back on. Pt also notes some mild nausea this morning, and states she stopped eating her breakfast because of it. Pt denies any fevers, chills, vomiting, abdominal pain, diarrhea. She reports that her sore throat is much improved with the medication( nystatin swish and swallow). Pt notes some mild edema in her arm,notes it is chronically swollen but looks worse today. Pt states that she is eager to go home. Exam Vital Signs Vital Sign - Last Date Time Temp Pulse Resp B/P Pulse Ox O2 Delivery O2 Flow Rate FiO2 02/14/16 05:03 36.6 84 20 102/60 99 Nasal Cannula 1.00 Intake and Output 02/13/16 02/13/16 02/14/16 Cumulative From/Thru 15:00 23:00 07:00 02/10/16 16:47 - 02/14/16 06:36 Intake Total 1036 ml 200 ml 3486 ml Output Total 775 ml 475 ml 3500 ml Balance 261 ml -275 ml -14 ml Intake Oral 1036 ml 200 ml 3486 ml Output Urine Total 775 ml 475 ml 3500 ml # Bowel Movements 0 2 6 Exam General: Frail, Cachectic, No acute distress, Appropriately interactive HEENT: Tongue and oropharynx with erythema. Nasal canula in place. Normocephalic , atraumatic. Left eye drooping( per pt & family this is chronic). Anicteric sclerae, moist conjunctivae.Oropharynx with mildly dry mucosa. Edentulous. Neck: Supple. No jugular venous distension appreciated. No lymphadenopathy Cardiovascular: Regular rate and rhythm with no murmurs, rubs, or gallops appreciated Pulmonary: Poor effort. Decreased sounds at bases bilaterally. No use of accessory muscles. Abdomen: Bowel tones present. Soft, nontender, nondistended. Extremities: Left upper extremity with edema of the biceps and forearm( pt notes her arm is chronically edematous but that this is worse than baseline). Trace pitting edema in lower extremities bilaterally. Left lower extremity with area of pretibial erythema, no warmth (chronic per patient). Skin: Normal temperature, turgor, and texture Psychiatric: Normal mood and affect. Alert and oriented to person, place, and time. Neuro:Speech normal; facial expressions symmetric IVs and Medications Medications Reviewed: Medications were reviewed in detail Lab and Diagnostics Result Diagram: 02/13/1635 02/13/1635 X-Rays, CTs and MRIs Date of Service: 02/10/16 1369 PROCEDURE: X-RAY CHEST ONE VIEW, PORTABLE ([id number]) INDICATIONS: SHORTNESS OF BREATH TECHNIQUE: One view of the chest was acquired. COMPARISON: [facility], CR, XR CHEST 1VW (PORTABLE), 01/02/2016, 15 :21. FINDINGS: Surgical changes and devices: There is a cardiac pacemaker with leads in expected position. Sternotomy and CABG. Lungs and pleura: Bilateral interstitial infiltrates consistent with pulmonary edema. There are small pleural effusions bilaterally. Bibasilar opacities may be pneumonia or atelectasis. No pneumothorax. Overall, there is no significant change. Mediastinum: Mediastinal contours appear normal. Heart size is normal. Bones and chest wall: No suspicious bony lesions. Overlying soft tissues appear unremarkable. IMPRESSION: Stable chest. Persistent pulmonary edema and small pleural effusions. Bilateral pneumonia versus atelectasis. Dictated by: Breann Justice M.D. on 02/10/2016 at 17:33 Approved by: Breann Justice M.D. on 02/10/2016 at 17:33 ------ Additional Diagnostics Date of Service: 02/10/16 2676 PROCEDURE: US VEINOUS LEG DUPLEX UNILATERAL, LEFT INDICATIONS: Left leg swelling with dyspnea TECHNIQUE: Real-time imaging, as well as color and pulse Doppler interrogation, were performed of the lower extremity deep veins from the inguinal ligament to the popliteal fossa. COMPARISON: None. FINDINGS: The deep veins are normally compressible, and free of intraluminal thrombus. Color and pulse Doppler demonstrate normal phasic intraluminal flow. There is normal augmentation response to distal compression maneuver. Left leg edema is noted. IMPRESSION: No DVT in the left lower extremity. Dictated by: Breann Justice M.D. on 02/10/2016 at 18:51 Approved by: Breann Justice M.D. on 02/10/2016 at 18:51 Assessment & Plan Patient is a pleasant 85-year-old female with CAD s/p CABG, hypertension, rheumatoid arthritis and chronic RV systolic heart failure presenting with dyspnea and admitted for suspected CHF exacerbation, pneumonia and UTI. She has been agreeable to open with Hospice, tentative 02/15/2016. She, and her family, wishes to remain in the hospital until all equipment and services are initiated. Acute on chronic right systolic heart failure, present on admission. ongoing -Echo from 12/2015 shows severely dilated RV with severely reduced systolic function. LVEF 55-60% -Pro-BNP 7641 -Lasix 40mg IV in ED -Continue supplemental O2 -Daily standing weight. I/Os. -Continue metoprolol tartrate 6.25 mg BID. -Holding lasix as pt has dry mucosa. -Gentle rehydration with close monitoring -Labs in AM - Pt accepted by Hospice, but wishes to have continued treatments while in the hospital Left upper extremity edema,not present on admission, ongoing -US of left upper extremity ordered -Continue to monitor for worsening or changes.Extremity remains neurovascularly intact Suspected bibasilar community acquired pneumonia, present on admission. Improved -Chest x-ray shows bibasilar opacities -Influenza screen negative -Procalcitonin negative 0.14, -Legionella and Strep pneumo urine Ag, Respiratory virus PCR all negative -Received azithromycin and ceftriaxone in ED. -Continue treatment with Azithromycin and Ceftriaxone at this time given pt's improvement. However, if pt starts to worsen or develop more symptoms would consider HCAP as possible cause and add antibiotics. - Final dose Rocephin admin IM, 1 day remain azithro therapy - Pt accepted by Hospice, but wishes to have continued treatments while in the hospital Erythema of oropharynx with reported dysphagia, Improved -Possible cause include thrush -Nystatin swish and swallow effective -Swallow evaluation ordered: Soft, nectar-thick -Will consider Diflucan if not improved. Bilateral pleural effusion, chronic. Present on admission. Presumed stable -Seen on chest x-ray November 2015. -No worsening, appears stable Acute dyspnea, present on admission. Resolved -Etiology likely from or combination of the above #1,2,3 -Improving -Pt on home supplemental O2 at baseline Elevated troponin, acute. Present on admission. Stable -Pt denies any chest pain/pressure, shortness of breath or diaphoresis -EKG sinus 81, paced, no acute ST changes -Troponin elevated-- 0.034, 0.027, 0.033 -Possibly secondary to demand ischemia Acute kidney injury. Present on admission. Stabilizing -Creatinine 1.14 on admission, trending up -Possibly secondary to CHF exacerbation, unclear etiology at this time. -Avoid nephrotoxins -Gentle rehydration with close monitoring -Monitor labs daily Chronic left lower extremity swelling. Present on admission. Stable -Doppler negative for DVT -Patient reports multiple cellulitis infections in the past on this leg, thus likely baseline -Continue to monitor for signs of infection Acute on chronic urinary tract infections. Present on admission. Resolved -History of recurrent UTI's; straight caths at home -UA with moderate LE, many bacteria -Started on ceftriaxone in ED -Urine culture growing mixed urogenital roshni - Rocephin completed; azithro x1 more days Prolonged QTc, chronic. Present on admission. Stable -QTc 569ms on admission, -Noted on EKG's dating back to November 2015 -Avoid QT prolonging medications -Repeat EKG pending Chronic issues, presumed stable Microcytic anemia, chronic. Present on admission. -Possibly secondary to hydroxychloroquine, iron deficiency -Continue to monitor with CBC Thrombocytopenia, chronic. Present on admission -Possibly secondary to hydroxychloroquine -No obvious signs of bleeding -Continue to monitor with CBC Coronary artery disease s/p CABG. Present on admission -ASA 81mg daily -Continue home statin Hypothyroidism, chronic. Present on admission - Continue levothyroxine 112 mcg daily Rheumatoid arthritis, chronic. Present on admission - Continue hydroxychloroquine 400 mg daily. - PRN: Fever/pain/antiemetic/bowel - DIET: Per ST, soft, nectar thick - GI: Not indicated - DVT: Hep q8 - Code: DNR/DNI Dispo: Hospice tentative to open 02/15/16. Patient and family wish to remain inpatient until that time. Would like to continue to receive treatments as necessary, they would not like comfort care at this time. Refused PICC placement at this time. Aware that they are free to discharge at any point if they desire. DC 02/14 to home with Hospice services at this time. GI Prophylaxis: Not indicated VTE Prophylaxis: Sub-Q Heparin (Unfractionated) Resuscitation Status: DNR/DNI:Do Not Resuscitate/Intubate Attending Statement The patient was seen and examined together with Dr. Hernandez on 02/14/2016 and I agree with the history, exam and plan as outlined in the note above. Unique Hernandez DO Feb 14, 2016 07:14 Ori Eldridge MD Feb 14, 2016 20:49
--- NOTE | 2016-02-14 14:36 | NUR ---
spiritual care: follow up conversational visit with pt and son. both reflected on plan of care and personal/family history, pt maintains good social connections and looks forward to being home. prayer, scripture reading
--- NOTE | 2016-02-14 15:57 | NUR ---
Activity Visiting family most of shift. Escorted via w/c and [employer] OF COMM[employer]ITY [employer] with 1L oxygen around floor for change in scenery. Using SBA and FWW to BSC.Pt making needs known using call light and is comfortable at this time.
[2016-02-15 01:43] VITALS: BP 106/68; PULSE 89; RESP 22; O2SAT 98
[2016-02-15] MEDS: Heparin 5,000 Unit/mL Inj SUBQ SCH ×2 (01:46→08:26)
--- NOTE | 2016-02-15 03:33 | NUR ---
headache patient complained of headache earlier in the shift. medicated with tylenol as documented. resting quietly, care ongoing
[2016-02-15 05:00] VITALS: BP 98/56; PULSE 83; RESP 20; O2SAT 95
[2016-02-15 07:06] LABS: BASOPHILS % (AUTO) 0.5 % (0-3); EOSINOPHILS % (AUTO) 0 % (0-5); MONOCYTES % (AUTO) 15.9 % (4-12); Mean Corpuscular Hemoglobin 24.9 pg (27.0-35.0); Mean Corpuscular Volume 81.4 fL (81-100); NEUTROPHILS % (AUTO) 61.1 % (40-74); Platelet Count 127 bil/L (150-400)
[2016-02-15] MEDS ORDERED: MELA1TAB9 PO (07:35)
[2016-02-15] MEDS: Hydroxychloroqine 200 mg Tablet PO SCH (08:26)
[2016-02-15] MEDS: Nystatin 100,000 Unit/mL 5 mL Suspension PO SCH (08:26)
[2016-02-15] MEDS: 0.9% Sodium Chloride 1,000 ML IV SCH (10:15)
[2016-02-15 11:08] VITALS: BP 97/59; PULSE 90; RESP 24; O2SAT 96
--- NOTE | 2016-02-15 12:28 | PCM.DIMED ---
Unique Hernandez DO 02/15/16 0742: Discharge Instructions Date of Service Feb 15, 2016 Dates of Hospitalization Feb 10, 2016 at 19:48 Discharge Diagnosis Discharge Diagnosis Acute on chronic right systolic heart failure Left upper extremity edema Suspected bibasilar community acquired pneumonia Erythema of oropharynx with reported dysphagia Bilateral pleural effusion, chronic Acute dyspnea Elevated troponin, acute. Acute kidney injury. Chronic left lower extremity swelling. Acute on chronic urinary tract infections. Prolonged QTc, chronic. Chronic issues, presumed stable Microcytic anemia, chronic. Thrombocytopenia, chronic. Coronary artery disease s/p CABG. Hypothyroidism, chronic. Rheumatoid arthritis, chronic. Medication Instructions I am continuing all of your home medications. Hospice will review your medications and help determine what medications you need and don't need. We are sending you home with some Nystatin for you tongue and throat pain. Diet Other (Soft, nectar-thick) Activity No restrictions Call your provider Fever or Chills, Shortness of breath, Bleeding, Chest pain, Vomitting, Excessive diarrhea, Weakness (unilateral), Other (Call Hospice for issues) Patient Instructions You are being discharged home on Hospice. Hospice will meet you today. I am continuing all of your home medications. Hospice will review your medications and help determine what medications you need and don't need. We are sending you home with some Nystatin for you tongue and throat pain. You had a swallow evaluation while here in the hospital, and they recommended soft, nectar-thick diet. Follow-up Provider: LUDWIG LUCIANO Follow-up with PCP in: 1 week Ori Eldridge MD 02/16/16 0956: Unique Hernandez DO Feb 15, 2016 07:42 Ori Eldridge MD Feb 16, 2016 09:56
--- NOTE | 2016-02-15 12:46 | NUR ---
Social Work-discharge: Data:EMR reviewed. Pt is on day 5 of hospitalization for CHF exacerbation per H&P. Pt is medically stable to discharge today. SW confirmed with Ricarda at Hospice that they are delivering DME today and can open at home between 2-3. SW spoke with pt's son and pt at bedside who confirm DME was delivered and he has portable O2 to take pt home with. Pt to have ultrasound of the arm and then have results sent to PCP. Pt's son to provide transport home today. SW updated Luz Maria [place] that pt is discharging home with Hospice. RN,UC,pt/family, and Hospice all updated and agreeable to plan. Assessment:pt who would benefit from Hospice. Plan:Pt to discharge home on Hospice today via POV at 1300. Hospice has delivered DME and Hospice to open this afternoon between 2-3. RN,UC,pt/family, and Hospice all updated and agreeable to plan. KISHOR Hernandez
--- NOTE | 2016-02-15 13:49 | DRSVH ---
PROCEDURE: US VENOUS ARM DUPLEX UNILATERAL, LEFT INDICATIONS: swelling of left upper extremity TECHNIQUE: Real-time imaging, as well as color and pulse Doppler interrogation, was performed of the left upper extremity deep veins from the inferior neck to the antecubital fossa. COMPARISON: None. FINDINGS: The internal jugular vein, visualized portions of the subclavian vein, axillary, and brach ial veins are free of intraluminal thrombus. Where physically possible, the veins are normally compr essible. Color and pulse Doppler demonstrate normal intraluminal flow, with expected phasicity and p ulsatility. Additional scanning of the cephalic and basilic veins of the superficial system demonstr ate normal compressibility, without thrombus. Soft tissue edema is present. IMPRESSION: No evidence of left upper extremity DVT. Dictated by: Caitlyn Marti M.D. on 02/15/2016 at 13:46 Approved by: Caitlyn Matri M.D. on 02/15/2016 at 13:46
--- NOTE | 2016-02-15 14:14 | NUR ---
Discharge Patient discharge to home with hospice and with all belongings at 1341. Explained to patient new medication (melatonin), when next medications are due and discharge instructions. Patient verbalized understanding. No IV to Dc. Vitals stable. Patient left floor via wheelchair accompanied by [employer] WORK[employer] and family with no signs of distress.
--- NOTE | 2016-02-16 18:09 | PCM.DC.MED ---
Discharge Summary Date of Service Feb 16, 2016 Dates of Hospitalization Date of Hospital Admission Feb 10, 2016 at 19:48 Date of Discharge: Feb 15, 2016 Providers: Admitting Physician: Syl Trujillo MD Primary Care Physician: Toño Schultz MD Attending Physician: Syl Trujillo MD Diagnosis at Time of Discharge Diagnosis at Time of Discharge Acute on chronic right systolic heart failure Left upper extremity edema Suspected bibasilar community acquired pneumonia Erythema of oropharynx with reported dysphagia Bilateral pleural effusion, chronic Acute dyspnea Elevated troponin, acute. Acute kidney injury. Chronic left lower extremity swelling. Acute on chronic urinary tract infections. Prolonged QTc, chronic. Chronic issues, presumed stable Microcytic anemia, chronic. Thrombocytopenia, chronic. Coronary artery disease s/p CABG. Hypothyroidism, chronic. Rheumatoid arthritis, chronic. Procedures XRay, CTs & MRIs PROCEDURE: X-RAY CHEST ONE VIEW, PORTABLE ([id number]) FINDINGS: Surgical changes and devices: There is a cardiac pacemaker with leads in expected position. Sternotomy and CABG. Lungs and pleura: Bilateral interstitial infiltrates consistent with pulmonary edema. There are small pleural effusions bilaterally. Bibasilar opacities may be pneumonia or atelectasis. No pneumothorax. Overall, there is no significant change. Mediastinum: Mediastinal contours appear normal. Heart size is normal. Bones and chest wall: No suspicious bony lesions. Overlying soft tissues appear unremarkable. IMPRESSION: Stable chest. Persistent pulmonary edema and small pleural effusions. Bilateral pneumonia versus atelectasis. Dictated by: Breann Justice M.D. on 02/10/2016 at 17:33 Approved by: Breann Justice M.D. on 02/10/2016 at 17:33 PROCEDURE: US VEINOUS LEG DUPLEX UNILATERAL, LEFT FINDINGS: The deep veins are normally compressible, and free of intraluminal thrombus. Color and pulse Doppler demonstrate normal phasic intraluminal flow. There is normal augmentation response to distal compression maneuver. Left leg edema is noted. IMPRESSION: No DVT in the left lower extremity. Dictated by: Breann Justice M.D. on 02/10/2016 at 18:51 Approved by: Breann Justice M.D. on 02/10/2016 at 18:51 PROCEDURE: X-RAY CHEST ONE VIEW ([id number]) FINDINGS: Surgical changes and devices: Status post CABG procedure. Dual-lead cardiac pacer is stable. Lungs and pleura: Small bilateral pleural fluid collection slightly increased in size compared to prior examination obtained 02/10/16. Increased bibasilar opacities. Mediastinum: Mediastinal contours appear normal. Heart size is normal. Bones and chest wall: No suspicious bony lesions. Overlying soft tissues appear unremarkable. IMPRESSION: Increased bibasilar opacities and small bilateral pleural fluid collections compatible with progression of pneumonia. Dictated by: Maria Rainey MD, PhD on 02/11/2016 at 21:02 Approved by: Maria Rainey MD, PhD on 02/11/2016 at 21:02 PROCEDURE: US VENOUS ARM DUPLEX UNILATERAL, LEFT FINDINGS: The internal jugular vein, visualized portions of the subclavian vein , axillary, and brachial veins are free of intraluminal thrombus. Where physically possible, the veins are normally compressible. Color and pulse Doppler demonstrate normal intraluminal flow, with expected phasicity and pulsatility. Additional scanning of the cephalic and basilic veins of the superficial system demonstrate normal compressibility, without thrombus. Soft tissue edema is present. IMPRESSION: No evidence of left upper extremity DVT. Dictated by: Caitlyn Marti M.D. on 02/15/2016 at 13:46 Approved by: Caitlyn Marti M.D. on 02/15/2016 at 13:[address] Thuan Fernández's H&P "Patient is a pleasant 85-year-old female with CAD s/p CABG, hypertension, rheumatoid arthritis and chronic RV systolic heart failure presenting with dyspnea. The patient is currently rehabilitating at [facility] and reports onset of shortness of breath about two days ago. She states she woke up this morning with worsening shortness of breath that occurred while at rest and did not improve, which prompted her to be brought to [facility] ED for further evaluation. The patient endorses an associated dry cough, nausea, lightheadedness and an episode of emesis yesterday. She otherwise denies chest pain, palpitations, fever, chills, wheezing, acute vision change, weakness, dizziness, abdominal pain, diarrhea. At time of visit, the patient reports her breathing has improved but she is not quite at baseline. She denies use of supplemental oxygen at home. Patient reports being compliant with her prescribed medications.In the ED, vitals: 36.3, HR 82, RR 17 satting 100% on 4L nasal cannula, BP 92/52. Labs are remarkable for Hgb 8.8, Hct 28.9, platelets 115, creatinine 1.14. Troponin 0.034, Pro-BNP 7641. D-dimer 0.7. Chest x-ray shows bilateral interstitial infiltrates, bilateral pleural effusions and bibasilar opacities. Patient was given a dose of Lasix 40mg IV and started on azithromycin and ceftriaxone in the ED." Hospital Course Patient is a pleasant 85-year-old female with CAD s/p CABG, hypertension, rheumatoid arthritis and chronic RV systolic heart failure who presented with dyspnea and admitted for suspected CHF exacerbation, pneumonia and UTI.Patient was diuresed, and given appropriate antibiotics. She also underwent swallow evaluation. Pt discharged home on hospice, in stable condition with poor overall prognosis. Hospice opened on 02/15/2016. Acute on chronic right systolic heart failure -Echo from 12/2015 shows severely dilated RV with severely reduced systolic function. LVEF 55-60% -Pro-BNP 7641 -Continue supplemental O2 - Pt discharged on Hospice Left upper extremity edema -US of left upper extremity, no dvt reported -Extremity remains neurovascularly intact Suspected bibasilar community acquired pneumonia -Chest x-ray shows bibasilar opacities -Influenza screen negative -Procalcitonin negative 0.14, -Legionella and Strep pneumo urine Ag, Respiratory virus PCR all negative -Received azithromycin and ceftriaxone. - Pt accepted by Hospice Erythema of oropharynx with reported dysphagia -Possible cause include thrush -Nystatin swish and swallow effective -Swallow evaluation recommendation: Soft, nectar-thick Bilateral pleural effusion, chronic -Seen on chest x-ray November 2015. -No worsening, appears stable Acute dyspnea -Etiology likely from or combination of the above #1,2,3 -Pt on home supplemental O2 at baseline Elevated troponin, acute -Pt denies any chest pain/pressure, shortness of breath or diaphoresis -EKG sinus 81, paced, no acute ST changes -Troponin elevated-- 0.034, 0.027, 0.033 -Possibly secondary to demand ischemia Acute kidney injury -Creatinine 1.14 on admission, trending up -Possibly secondary to CHF exacerbation, unclear etiology -Avoid nephrotoxins Chronic left lower extremity swelling -Doppler negative for DVT -Patient reports multiple cellulitis infections in the past on this leg, thus likely baseline Acute on chronic urinary tract infections. -History of recurrent UTI's; straight caths at home -UA with moderate LE, many bacteria -Treated with ceftriaxone and azithromycin Prolonged QTc, chronic. P -QTc 569ms on admission, -Noted on EKG's dating back to November 2015 -Avoid QT prolonging medications Chronic issues, presumed stable Microcytic anemia, chronic. -Possibly secondary to hydroxychloroquine, iron deficiency Thrombocytopenia, chronic. -Possibly secondary to hydroxychloroquine -No obvious signs of bleeding Coronary artery disease s/p CABG. -ASA 81mg daily -Continue home statin Hypothyroidism, chronic. - Continue levothyroxine 112 mcg daily Rheumatoid arthritis, chronic. - Continue hydroxychloroquine 400 mg daily. - Code: DNR/DNI Dispo: Home with Hospice services at this time. Exam Vital Signs (Last) Date Time Temp Pulse Resp B/P Pulse Ox O2 Delivery O2 Flow Rate FiO2 02/15/16 11:08 36.4 90 24 97/59 96 Nasal Cannula 1.00 Exam General: Frail, Cachectic, No acute distress, Appropriately interactive HEENT: Tongue and oropharynx with erythema. Nasal canula in place. Normocephalic , atraumatic. Left eye drooping( per pt & family this is chronic). Anicteric sclerae, moist conjunctivae.Oropharynx with mildly dry mucosa. Edentulous. Neck: Supple. No jugular venous distension appreciated. No lymphadenopathy Cardiovascular: Regular rate and rhythm with no murmurs, rubs, or gallops appreciated Pulmonary: Poor effort. Decreased sounds at bases bilaterally. No use of accessory muscles. Abdomen: Bowel tones present. Soft, nontender, nondistended. Extremities: Left upper extremity with edema of the biceps and forearm( pt notes her arm is chronically edematous but that this is worse than baseline). Trace pitting edema in lower extremities bilaterally. Left lower extremity with area of pretibial erythema, no warmth (chronic per patient). Skin: Normal temperature, turgor, and texture Psychiatric: Normal mood and affect. Alert and oriented to person, place, and time. Neuro:Speech normal; facial expressions symmetric Test 02/10/16 17:15 02/10/16 18:57 02/10/16 19:10 02/10/16 20:44 Prothrombin Time 14.4sec (8.1-12.5) Prothromb Time International Ratio 1.34ratio D-Dimer 0.7mg/L (<0.50) Pro-B-Type Natriuretic Peptide 7641pg/mL (0-738) Lactic Acid Level 1.9mmol/L (0.4-2.0) Urine Color Yellow (YELLOW) Urine Appearance Hazy (CLEAR,HAZY) Urine pH 5.0 (5.0-8.0) Urine Specific [place] 1.030 (1.003-1.035) Urine Protein 30mg/dL (NEG,TRACE) Urine Glucose (UA) Negativemg/dL (NEGATIVE) Urine Ketones Negativemg/dL (NEGATIVE) Urine Occult Blood Large (NEGATIVE) Urine Nitrite Negative (NEGATIVE) Urine Bilirubin Negative (NEGATIVE) Urine Urobilinogen Normalmg/dL (NORMAL) Urine Leukocyte Esterase Moderate (NEGATIVE) Urine RBC 3-10/hpf (0-2) Urine WBC 0-5/hpf (0-5) Urine Epithelial Cells None/hpf (NONE-MOD) Urine Crystals None seen (NONE SEEN) Urine Bacteria Many/hpf (NONE-FEW) Urine Hyaline Casts None/lpf (NONE) Urine Granular Casts None seen (NONE SEEN) Urine Waxy Casts None seen (NONE SEEN) Urine Red Blood Cell Casts None seen (NONE SEEN) Urine White Blood Cell Casts None seen (NONE SEEN) Urine Mucus None seen (None Seen) Urine Trichomonas None seen (NONE SEEN) Urine Yeast None (NONE SEEN) Urinalysis Comment None Urine Culture Reflexed Indicated Procalcitonin 0.14ng/mL (See Comment) Test 02/10/16 22:33 02/11/16 06:03 02/11/16 16:10 02/11/16 16:20 Urine Legionella pneumophilia Ag Negative (Negative) Troponin T 0.033ug/L (0.0-0.011) Hold Purple Top Tube Received (Received) Hold Blue Top Tube Received (Received) Hold Red Top Tube Received (Received) Hold [place] Top Tube Received (Received) Hold [place] Top Tube Received (Received) Reticulocyte Count,Calculated 1.7% (0.6-2.6) Iron Level 34ug/dL (35-150) Total Iron Binding Capacity 490ug/dL (250-450) Percent Iron Saturation 7%sat (15-50) Unsaturated Iron Binding 456.1ug/dL Ferritin 24ng/mL (13-150) Vitamin B12 Level 1354pg/mL (211-946) Folate 16.6ng/mL (>3.0) Test 02/15/16 06:30 White Blood Count 6.4th/mm3 (3.8-10.1) Red Blood Count 3.33mil/mm3 (3.90-5.20) Hemoglobin 8.3g/dL (12.0-15.6) Hematocrit 27.1% (35.0-46.0) Mean Corpuscular Volume 81.4fL (81-100) Mean Corpuscular Hemoglobin 24.9pg (27.0-35.0) Mean Corpuscular Hemoglobin Concent 30.6% (32.0-37.0) Red Cell Distribution Width 18.9% (12.3-15.4) Platelet Count 127bil/L (150-400) Neutrophils (%) (Auto) 61.1% (40-74) Lymphocytes (%) (Auto) 22.2% (14-46) Monocytes (%) (Auto) 15.9% (4-12) Eosinophils (%) (Auto) 0% (0-5) Basophils (%) (Auto) 0.5% (0-3) Sodium Level 138mEq/L (134-144) Potassium Level 4.2mEq/L (3.5-5.2) Chloride Level 101mEq/L (97-108) Carbon Dioxide Level 27mmol/L (18-29) Blood Urea Nitrogen 32mg/dL (8-27) Creatinine 0.96mg/dL (0.57-1.00) Estimat Glomerular Filtration Rate 79mL/min (>59) Glucose Level 80mg/dL (60-99) Calcium Level 8.7mg/dL (8.5-10.1) Total Bilirubin 1.0mg/dL (0.0-1.2) Aspartate Amino Transf (AST/SGOT) 96U/L (0-50) Alanine Aminotransferase (ALT/SGPT) 43U/L (0-32) Alkaline Phosphatase 89U/L (25-165) Total Protein 6.4g/dL (6.4-8.4) Albumin 2.9g/dL (3.4-5.0) Discharge Medications Discharge Medications Acetaminophen (Acetaminophen) 325 Mg Capsule 650 MG PO pain/fever (Reported) Aspirin (Aspirin) 81 Mg Tablet 81 MG PO BID (Reported) Atorvastatin Calcium (Atorvastatin Calcium) 40 Mg Tablet 40 MG PO HS (Reported) Furosemide (Lasix) 40 Mg Tablet 40 MG PO BID Prescribed by: DRE RAINEY MD Hydroxychloroquine Sulfate (Hydroxychloroquine Sulfate) 200 Mg Tablet 400 MG PO DAILY Prescribed by: DRE RAINEY MD Levothyroxine (Levothyroxine) 112 Mcg Tablet 112 MCG PO DAILY (Reported) Metoprolol Tartrate (Metoprolol Tartrate) 50 Mg Tablet 6.25 MG PO BID (Reported ) Potassium Chloride (Potassium Chloride) 10 Meq Capsule.er 20 MEQ PO DAILY ( Reported) TAKE WITH FOOD Zinc Oxide (Zinc Oxide) 57 Gm Oint...g. 1 APPLIC EXT BID (Reported) As needed Melatonin (Melatonin) 1 Mg Tablet 1 MG PO HS PRN PRN Insomnia Prescribed by: YENI LOUIE DO Promethazine (Promethazine) 25 Mg Tablet 25 MG PO Q6H PRN PRN For Nausea/ Vomiting (Reported) Additional med instructions I am continuing all of your home medications. Hospice will review your medications and help determine what medications you need and don't need. We are sending you home with some Nystatin for you tongue and throat pain. Followup Plan Disposition: home with hospice Discharge Diet: Other (Soft, nectar-thick) Discharge Activity: No restrictions Patient Instructions You are being discharged home on Hospice. Hospice will meet you today. I am continuing all of your home medications. Hospice will review your medications and help determine what medications you need and don't need. We are sending you home with some Nystatin for you tongue and throat pain. You had a swallow evaluation while here in the hospital, and they recommended soft, nectar-thick diet. Follow-up Provider: LUDWIG LUCIANO Follow-up with PCP in: 1 week copies to: Toño Schultz MD; LUDWIG LUCIANO Tara L DO Feb 16, 2016 18:09
== END 2016-02-15 13:40 | disposition hospice, home (50) | DRG 291 ==
LOC: EDBD 16:40 → SED 16:40 → MPC 19:48
PROVIDERS: ADMIT Specialist; ATTEND Specialist
PROC: 4A033B1 Measurement of Arterial Pressure, Peripheral, Percutaneous Approach (ICD-10-PCS; principal; 2016-02-11)
DX: I50.23 Acute on chronic systolic (congestive) heart failure (principal); J18.9 Pneumonia, unspecified organism; N39.0 Urinary tract infection, site not specified; N17.9 Acute kidney failure, unspecified; J90 Pleural effusion, not elsewhere classified; I24.8 Other forms of acute ischemic heart disease; I25.10 Atherosclerotic heart disease of native coronary artery without angina pectoris; Z95.1 Presence of aortocoronary bypass graft; Z95.0 Presence of cardiac pacemaker; E03.9 Hypothyroidism, unspecified; M06.9 Rheumatoid arthritis, unspecified; Z66 Do not resuscitate; D69.6 Thrombocytopenia, unspecified; D50.9 Iron deficiency anemia, unspecified; I45.81 Long QT syndrome; R60.9 Edema, unspecified